=== PATIENT | male | born 1955 | race Caucasian/White ===

== ENCOUNTER 2025-05-06 13:46 | Outpatient (RCR) | payer MEDICARE, BC, SELFPAY | END 2025-05-06 23:59 | disposition home or self-care (01) | LOC: CRHB 13:46 | PROVIDERS: ATTENDING PHYSICIAN Internal Medicine Cardiovascular Disease; FAMILY PHYSICIAN Family Medicine | DX: Z95.818 Presence of other cardiac implants and grafts (principal); Z98.890 Other specified postprocedural states | CPT/HCPCS: G0422; G0423 ==

== ENCOUNTER 2025-05-08 13:11 | Outpatient (RCR) | payer MEDICARE, BC, SELFPAY | END 2025-06-03 11:39 | disposition home or self-care (01) | LOC: CRHB 13:11 | PROVIDERS: ATTENDING PHYSICIAN Internal Medicine Cardiovascular Disease; FAMILY PHYSICIAN Family Medicine | DX: I34.1 Nonrheumatic mitral (valve) prolapse (principal); I25.10 Atherosclerotic heart disease of native coronary artery without angina pectoris; I48.91 Unspecified atrial fibrillation; I48.92 Unspecified atrial flutter; I11.0 Hypertensive heart disease with heart failure; I50.9 Heart failure, unspecified; Z95.0 Presence of cardiac pacemaker; Z95.4 Presence of other heart-valve replacement | CPT/HCPCS: G0422 ==